=== PATIENT | male | born 1995 | race American Indian/Alaskan Native ===

== ENCOUNTER 2017-01-31 14:04 | Emergency (ER) | payer MEDICAID ==
[2017-01-31 14:04] VITALS: BMI 20.5
[2017-01-31 14:11] VITALS: O2SAT 98
[2017-01-31 14:47] LABS: RBC URINE 1 /hpf (0-3); URINE BILIRUBIN NEGATIVE (NEGATIVE); URINE BLOOD NEGATIVE (NEGATIVE); URINE COLOR Yellow (YELLOW); URINE GLUCOSE (UA) NORMAL (Normal); URINE KETONE NEGATIVE (NEGATIVE); URINE LEUKOCYTE ESTERASE TRACE Leu/uL (Negative); URINE PROTEIN NEGATIVE (NEGATIVE); URINE UROBILINOGEN NORMAL mg/dL (0.2-1.0); WBC URINE 10 /hpf (0-5)
[2017-01-31] MEDS ORDERED: cefTRIAXone (Rocephin) 250 mg Inj IM STA (14:52)
--- NOTE | 2017-01-31 14:58 | C.PDOC ---
History Of Present Illness Pt c/o "brown stuff" in his semen. Time Seen by Provider: 01/31/17 14:15 Chief Complaint (Nursing): Male Genitourinary History Per: Patient Onset/Duration Of Symptoms: Days (about 1 week), Intermittent Episodes Current Symptoms Are (Timing): Still Present Severity: Moderate Quality Of Discomfort: denies: "Pain" Alleviating Factors: None Additional History Per: Prior Records Past Medical History Reviewed: Historical Data, Nursing Documentation, Vital Signs Vital Signs: Last Vital Signs Temp 97.9 F 01/31/17 14:07 Pulse 89 01/31/17 14:07 Resp 18 01/31/17 14:07 BP 117/73 01/31/17 14:07 Pulse Ox 98 01/31/17 14:07 - Medical History PMH: No Chronic Diseases, Sexually Transmitted Disease Surgical History: No Surg Hx - [facility] Procedures OTHER SKIN & SUBQ I D (02/09/15) Family History: States: Unknown Family Hx - Social History Hx Tobacco Use: No Hx Alcohol Use: No Hx Substance Use: No - Immunization History Hx Tetanus Toxoid Vaccination: Yes Hx Influenza Vaccination: No Hx Pneumococcal Vaccination: No Review Of Systems Except As Marked, All Systems Reviewed And Found Negative. Constitutional: Negative for: Fever, Weakness Cardiovascular: Negative for: Chest Pain Respiratory: Negative for: Shortness of Breath Gastrointestinal: Negative for: Vomiting, Abdominal Pain Genitourinary: Negative for: Dysuria, Frequency, Hematuria, Penile Discharge, Scrotal Pain, Penile Pain Musculoskeletal: Negative for: Neck Pain, Back Pain Skin: Negative for: Rash Neurological: Negative for: Weakness, Numbness, Seizures, Altered Mental Status Physical Exam - Physical Exam Appears: Non-toxic, No Acute Distress Skin: Normal Color, Warm, Dry, No Rash Head: Atraumatic, Normacephalic Eye(s): bilateral: PERRL, EOMI Neck: Normal ROM, Supple Cardiovascular: Rhythm Regular Respiratory: Normal Breath Sounds, No Accessory Muscle Use Gastrointestinal/Abdominal: Soft, No Tenderness Back: No CVA Tenderness Male Genital: Normal Inspection, No Testicular Tenderness, No Testicular Swelling, No Inguinal Tenderness, No Inguinal Swelling, No Scrotal Swelling, Circumcised Extremity: Normal ROM Neurological/Psych: Oriented x3, Normal Motor, Normal Sensation ED Course And Treatment - Laboratory Results Interpretation Of Abnormal: Few WBCs in the urine. O2 Sat by Pulse Oximetry: 98 Pulse Ox Interpretation: Normal Medical Decision Making Medical Decision Making: Will treat for urethritis and refer to Urology. Disposition Counseled Patient/Family Regarding: Studies Performed, Diagnosis, Need For Followup - Disposition Referrals: Lissett Youngblood MD [Staff Provider] - Disposition: HOME/ ROUTINE Disposition Time: 14:59 Condition: STABLE Additional Instructions: Practice safe sex (always use a condom). Follow up with a Urologist for further evaluation and treatment. Return to the ER if you develop testicular pain or swelling, worsening of symptoms or if you have any other concerns. Forms: General Discharge Instructions - Clinical Impression Clinical Impression: Hematospermia
[2017-01-31 15:15] VITALS: BP 124/72; PULSE 82; RESP 17; TEMP 98.1
[2017-01-31] MEDS ORDERED: cefTRIAXone 250 MG in Lidocaine Hydrochloride 1 ML IM ONE (16:00)
== END 2017-01-31 15:30 | disposition home or self-care (01) ==
LOC: C.ER 14:04
DX: R36.1 Hematospermia (principal)
CPT/HCPCS: 81001; 87086; 87491; 87591; 96372; 99284; J0696

== ENCOUNTER 2017-10-23 10:07 | Emergency (ER) | payer MEDICAID ==
[2017-10-23 10:07] VITALS: BMI 20.5
[2017-10-23 10:36] VITALS: TEMP 97.8; O2SAT 98
[2017-10-23 12:17] VITALS: BP 138/83; PULSE 51; RESP 18
--- NOTE | 2017-10-23 12:17 | C.PDOC ---
History Of Present Illness 21 year old male presents to ED for evaluation of epigastric abdominal pain, nausea, vomiting, and constipation. Pt states he was taking Percocet daily for the past 2-3 years, and has stopped taking it now (last Percocet was 5-6 days ago). Patient admits he has been experienging nausea/vomiting since then, and attributes the to opiate withdrawal. Patient denies chest pain, shortness of breath, fever, palpitations, suicidal/homicidal ideation. Time Seen by Provider: 10/23/17 10:40 Chief Complaint (Nursing): Abdominal Pain History Per: Patient History/Exam Limitations: no limitations Onset/Duration Of Symptoms: Days Current Symptoms Are (Timing): Still Present Severity: Mild Location Of Pain/Discomfort: Epigastric Radiation Of Pain To:: None Quality Of Discomfort: "Pain" Associated Symptoms: Nausea, Vomiting, Constipation. denies: Diarrhea, Loss Of Appetite, Back Pain, Chest Pain, Urinary Symptoms Exacerbating Factors: None Last Bowel Movement: Days Ago (4-5) Additional History Per: Patient Past Medical History Reviewed: Historical Data, Nursing Documentation, Vital Signs Vital Signs: Last Vital Signs Temp 97.8 F 10/23/17 10:34 Pulse 51 L 10/23/17 12:17 Resp 18 10/23/17 12:17 BP 138/83 10/23/17 12:17 Pulse Ox 98 10/23/17 12:35 - Medical History PMH: Sexually Transmitted Disease - [facility] Procedures OTHER SKIN & SUBQ I D (02/09/15) Family History: States: No Known Family Hx, Unknown Family Hx - Social History Hx Tobacco Use: No Hx Alcohol Use: Yes Hx Substance Use: Yes - Immunization History Hx Tetanus Toxoid Vaccination: Yes Hx Influenza Vaccination: No Hx Pneumococcal Vaccination: No Review Of Systems Except As Marked, All Systems Reviewed And Found Negative. Constitutional: Negative for: Fever, Chills Cardiovascular: Negative for: Chest Pain, Palpitations Respiratory: Negative for: Shortness of Breath Gastrointestinal: Positive for: Nausea, Vomiting, Abdominal Pain, Constipation. Negative for: Diarrhea, Hematemesis Genitourinary: Negative for: Dysuria, Frequency, Hematuria Skin: Negative for: Rash Neurological: Negative for: Weakness Psych: Negative for: Suicidal ideation Physical Exam - Physical Exam Appears: Well, Non-toxic, No Acute Distress Skin: Normal Color, Warm, Dry Head: Normacephalic Eye(s): bilateral: Normal Inspection Oral Mucosa: Moist Chest: Symmetrical Cardiovascular: Rhythm Regular (mild bradycardia) Respiratory: Normal Breath Sounds, No Rales, No Rhonchi, No Wheezing Gastrointestinal/Abdominal: Normal Exam, Bowel Sounds, Soft, No Tenderness, No Guarding, No Rebound Extremity: Normal ROM, No Pedal Edema Neurological/Psych: Oriented x3 ED Course And Treatment O2 Sat by Pulse Oximetry: 98 (RA) Pulse Ox Interpretation: Normal - Other Rad Obstructive series X-Ray: Interpreted by Me, Viewed By Me Interpretation: Large amount of stool. No air fluid levels Progress Note: Obstructive series ordered and reviewed. Pt was given PO Colace, Zofran, and Pepcid. Reevaluation Time: 12:30 Reassessment Condition: Improved (On re-eval, pt is resting comfortably, no acute distress. Abdomen remains soft and non-tender. Pt reports feeling better. Patient is being discharged home with Rxs and was instructed to follow up with PMD/clinic in 1-2 days for further evaluation. He understands he should return to ED if symptoms worsen.) Disposition Counseled Patient/Family Regarding: Studies Performed, Diagnosis, Need For Followup, Rx Given - Disposition Referrals: Niels Strauss MD [Staff Provider] - Disposition: HOME/ ROUTINE Disposition Time: 12:30 Condition: STABLE Additional Instructions: FOLLOW UP WITH YOUR DOCTOR IN 1-2 DAYS DRINK PLENTY OF FLUIDS AND INCREASE FIBER IN YOUR DIET USE MEDICATIONS DIRECTED RETURN TO ER IF SYMPTOMS WORSEN Prescriptions: Docusate [Colace] 100 mg PO DAILY #30 cap Famotidine [Pepcid] 20 mg PO BID PRN #15 tab PRN Reason: abdominal Magnesium Citrate [Citrate of Mag] 300 ml PO ONCE PRN #1 bottle PRN Reason: Constipation Ondansetron [Zofran Odt] 4 mg PO Q8 PRN #10 odt PRN Reason: Nausea/Vomiting Instructions: Constipation (ED), High Fiber Diet (ED) Forms: [facility] (Spanish) Print Language: HEBREW - POA Present On Arrival: None - Clinical Impression Clinical Impression: Constipation, Nausea, Epigastric abdominal pain, Opiate dependence - Scribe Statement The provider has reviewed the documentation as recorded by the Alonaibgomez Hemphill All medical record entries made by the Scribe were at my direction and personally dictated by me. I have reviewed the chart and agree that the record accurately reflects my personal performance of the history, physical exam, medical decision making, and the department course for this patient. I have also personally directed, reviewed, and agree with the discharge instructions and disposition.
--- NOTE | 2017-10-23 13:16 | RAD ---
PROCEDURE: Radiographs of the chest and abdomen (obstructive series) HISTORY: Abdominal pain pain, vomiting, constipation COMPARISON: No prior. TECHNIQUE: AP radiograph of the chest, with upright and supine radiographs of the abdomen. FINDINGS: CHEST: Lungs: The lungs are well inflated and clear. Cardiovascular: Normal size heart. No pulmonary vascular congestion. Pleura: No pleural fluid. No pneumothorax. Other findings: None. ABDOMEN AND PELVIS: Bowel: There is large amount of stool in the colon. There are no air-fluid levels. No evidence of mechanical obstruction. Free air: None. Bones: Unremarkable. Other findings: None. IMPRESSION: Constipation. No evidence of mechanical bowel obstruction. Clear lungs.
== END 2017-10-23 12:33 | disposition home or self-care (01) ==
LOC: C.ER 10:07
DX: K59.00 Constipation, unspecified (principal); F11.20 Opioid dependence, uncomplicated; R11.2 Nausea with vomiting, unspecified; R10.13 Epigastric pain

== ENCOUNTER 2017-11-14 11:30 | Emergency (ER) | payer MEDICAID ==
[2017-11-14 11:30] VITALS: BMI 20.5
[2017-11-14 11:47] VITALS: BP 126/84; PULSE 58; RESP 17; TEMP 98.6; O2SAT 98
--- NOTE | 2017-11-14 12:28 | C.PDOC ---
History Of Present Illness 21 yo male c/o itchy spots on his skin for 2 days. Pt notes he applied hydrocortisone once last night with mild relief. Notes his mother has eczema with similar symptoms. DEnies any known allergens including no new foods or medication. Denies difficulty breathing or swallowing. Denies lip or tongue swelling, itchy throat or intraoral swelling. Time Seen by Provider: 11/14/17 12:17 Chief Complaint (Nursing): Abnormal Skin Integrity History Per: Patient History/Exam Limitations: no limitations Onset/Duration Of Symptoms: Days Current Symptoms Are (Timing): Still Present Past Medical History Vital Signs: Last Vital Signs Temp 98.6 F 11/14/17 11:44 Pulse 58 L 11/14/17 11:44 Resp 17 11/14/17 11:44 BP 126/84 11/14/17 11:44 Pulse Ox 98 11/14/17 12:29 - Medical History PMH: Sexually Transmitted Disease - [facility] Procedures OTHER SKIN & SUBQ I D (02/09/15) Family History: States: Unknown Family Hx - Social History Hx Tobacco Use: No Hx Alcohol Use: No Hx Substance Use: No - Immunization History Hx Tetanus Toxoid Vaccination: Yes (2012) Hx Influenza Vaccination: Yes (2015) Hx Pneumococcal Vaccination: No Review Of Systems Except As Marked, All Systems Reviewed And Found Negative. Physical Exam - Physical Exam Appears: Well, Non-toxic, No Acute Distress Skin: Warm, Dry, Rash ((+) dry skin colored maculopapules clusters x 5 (back , neck , left leg, left buttock, chest) with excoriations, (-) vesicles (-) discharge (-) erythema (-)swelling (-) fluctuance) Head: Atraumatic, Normacephalic Eye(s): bilateral: Normal Inspection, PERRL, EOMI Nose: Normal Oral Mucosa: Moist Throat: Normal, No Erythema, No Drooling Neck: Normal, Normal ROM, Supple Chest: Symmetrical Cardiovascular: Rhythm Regular Respiratory: Normal Breath Sounds Back: Normal Inspection Extremity: Normal ROM Neurological/Psych: Oriented x3, Normal Speech ED Course And Treatment O2 Sat by Pulse Oximetry: 98 Progress Note: Benadryl ordered. On reassessment, patient is resting comfortable and tolerating PO with no intraoral swelling or difficulty breathing. Patient reports improvement in rash and was instructed to follow up with physician/clinic in 1-2 days or return to ED if symptoms persist or worsen. Disposition - Disposition Disposition: HOME/ ROUTINE Disposition Time: 12:21 Condition: STABLE Additional Instructions: Follow up with primary medical doctor in 1-3 days without fail for further evaluation. Take medications as prescribed. Return to the emergency department at any time if symptoms persist or worsen. Prescriptions: Colloidal Oatmeal [Eucerin Eczema Relief] 1 ea TP BID #1 cream..g. DiphenhydrAMINE [Benadryl] 25 mg PO Q6 #20 cap Hydrocortisone 1% Cream [Cortizone 1% Cream] 1 appl TP TID #1 tube Instructions: Acute Rash (ED) Forms: [facility] (Occitan) - Clinical Impression Clinical Impression: Rash
== END 2017-11-14 13:07 | disposition home or self-care (01) ==
LOC: C.ER 11:30
DX: R21 Rash and other nonspecific skin eruption (principal)

== ENCOUNTER 2018-01-28 12:03 | Emergency (ER) | payer MEDICAID ==
[2018-01-28 12:15] VITALS: BMI 28.2
[2018-01-28] MEDS ORDERED: Aluminum Hydroxide/Magnesium Hydroxide Susp (30 mL) PO STA (12:58)
--- NOTE | 2018-01-28 12:58 | C.PDOC ---
History Of Present Illness CO THROAT BURNING NEW ONSET SINCE THIS MORNING. PS W INTERMIT GERD FOR SEV MONTHS BUT NO PRIOR MD DAHL FOR SAME. NO PRIOR GI MEDS TRIED. PS ATE SPICY, FRIED FOODS LAST NIGHT. CO BURNING. +FHX OF GERD. DENIES OTHER ASSOC SX EXAM NAD HEENT THROAT NEG ABD NEG REMAINDER NEG MDM DIET MOD, ANTACID RX, REFERRAL GI Time Seen by Provider: 01/28/18 12:43 Chief Complaint (Nursing): ENT Problem History Per: Patient History/Exam Limitations: no limitations Onset/Duration Of Symptoms: Hrs Current Symptoms Are (Timing): Still Present Severity: Moderate Past Medical History Reviewed: Historical Data, Nursing Documentation, Vital Signs Vital Signs: Last Vital Signs Temp 98.0 F 01/28/18 13:20 Pulse 56 L 01/28/18 13:20 Resp 18 01/28/18 13:20 BP 134/81 01/28/18 13:20 Pulse Ox 96 01/28/18 15:30 - Medical History PMH: Sexually Transmitted Disease Surgical History: No Surg Hx - [facility] Procedures OTHER SKIN & SUBQ I D (02/09/15) Family History: States: No Known Family Hx - Social History Hx Tobacco Use: No Hx Alcohol Use: No Hx Substance Use: No - Immunization History Hx Tetanus Toxoid Vaccination: Yes (2012) Hx Influenza Vaccination: Yes (2015) Hx Pneumococcal Vaccination: No Review Of Systems Except As Marked, All Systems Reviewed And Found Negative. Constitutional: Negative for: Fever, Chills ENT: Positive for: Other (throat burning) Physical Exam - Physical Exam Appears: No Acute Distress Skin: Normal Color, Warm Head: Atraumatic, Normacephalic Eye(s): bilateral: Normal Inspection Throat: Normal, No Erythema, No Exudate Gastrointestinal/Abdominal: Soft, No Tenderness, No Guarding, No Rebound Neurological/Psych: Oriented x3, Normal Speech ED Course And Treatment O2 Sat by Pulse Oximetry: 96 (RA) Pulse Ox Interpretation: Normal Medical Decision Making Medical Decision Making: DIET MOD, ANTACID RX, REFERRAL GI Disposition Counseled Patient/Family Regarding: Diagnosis, Need For Followup, Rx Given - Disposition Referrals: Anil Patel MD [Staff Provider] - [facility] [Outside] [facility] [Outside] Disposition: HOME/ ROUTINE Disposition Time: 12:58 Condition: IMPROVED Prescriptions: Famotidine [Pepcid AC] 10 mg PO QN #30 tablet Omeprazole Magnesium [Prilosec Otc] 20 mg PO QPM #30 tab Instructions: Acid Reflux (Gastroesophageal Reflux Disease), Adult (DC), Ulcer and Gastritis Diet Forms: [facility] (Vietnamese), Work Excuse - Clinical Impression Clinical Impression: GERD (gastroesophageal reflux disease), Throat pain - Scribe Statement The provider has reviewed the documentation as recorded by the Harleen Gonzalez Provider Attestation: All medical record entries made by the Harleen were at my direction and personally dictated by me. I have reviewed the chart and agree that the record accurately reflects my personal performance of the history, physical exam, medical decision making, and the department course for this patient. I have also personally directed, reviewed, and agree with the discharge instructions and disposition.
[2018-01-28] MEDS ORDERED: Aluminum Hydroxide/Magnesium Hydroxide Susp (30 mL) ONE (13:24)
[2018-01-28 13:27] VITALS: BP 134/81; PULSE 56; RESP 18; TEMP 98
[2018-01-29 11:09] VITALS: O2SAT 96
== END 2018-01-28 13:32 | disposition home or self-care (01) ==
LOC: C.ER 12:03
DX: K21.9 Gastro-esophageal reflux disease without esophagitis (principal); R07.0 Pain in throat

== ENCOUNTER 2018-02-09 23:37 | Emergency (ER) | payer MEDICAID ==
[2018-02-09 23:37] VITALS: BMI 28.2
[2018-02-10 00:02] VITALS: BP 171/77; PULSE 60; RESP 20; TEMP 97.6; O2SAT 96
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
--- NOTE | 2018-02-10 12:52 | RAD ---
PROCEDURE: Right Foot Radiographs. HISTORY: r/o fx COMPARISON: None. FINDINGS: BONES: Normal. No fracture. 2 mm os peroneum - accessory ossifications center incidentally noted JOINTS: Normal. SOFT TISSUES: Normal. OTHER FINDINGS: None. IMPRESSION: No fracture or dislocation.
== END 2018-02-10 01:01 | disposition home or self-care (01) ==
LOC: C.ER 23:37
DX: S99.921A Unspecified injury of right foot, initial encounter (principal); V09.9XXA Pedestrian injured in unspecified transport accident, initial encounter

== ENCOUNTER 2018-03-21 14:01 | Emergency (ER) | payer MEDICAID ==
[2018-03-21 14:02] VITALS: BMI 28.2
[2018-03-21 14:17] VITALS: BP 154/90; PULSE 54; RESP 16; TEMP 97.4; O2SAT 100
--- NOTE | 2018-03-21 14:42 | C.PDOC ---
History Of Present Illness 22yo male, with no past medical history, presents to ER with complaints of groin pain. Patient states 4 days ago, he noticed a bump to his right groin region with associated mild pain. He states yesterday, he noticed similar pain to his left groin, worse with changing from lying down to sitting up. He denies any dysuria, hematuria, purulent discharge, discharge from penis. He has no other medical complaints. PMD: Dr. Nieto Time Seen by Provider: 03/21/18 14:17 Chief Complaint (Nursing): Groin Pain History Per: Patient History/Exam Limitations: no limitations Onset/Duration Of Symptoms: Days Current Symptoms Are (Timing): Still Present Associated Symptoms: denies: Urinary Symptoms Additional History Per: Patient Past Medical History Reviewed: Historical Data, Nursing Documentation, Vital Signs Vital Signs: Last Vital Signs Temp 97.4 F L 03/21/18 14:13 Pulse 54 L 03/21/18 14:13 Resp 16 03/21/18 14:13 BP 154/90 H 03/21/18 14:13 Pulse Ox 100 03/21/18 14:42 - Medical History PMH: No Chronic Diseases, Sexually Transmitted Disease Surgical History: No Surg Hx - [facility] Procedures OTHER SKIN & SUBQ I D (02/09/15) Family History: States: No Known Family Hx, Unknown Family Hx - Social History Hx Tobacco Use: No Hx Alcohol Use: No Hx Substance Use: No - Immunization History Hx Tetanus Toxoid Vaccination: Yes (2012) Hx Influenza Vaccination: Yes (2015) Hx Pneumococcal Vaccination: No Review Of Systems Except As Marked, All Systems Reviewed And Found Negative. Constitutional: Negative for: Fever, Chills Genitourinary: Positive for: Other (painful bump to groin). Negative for: Dysuria, Penile Discharge Physical Exam - Physical Exam Appears: Non-toxic, No Acute Distress Skin: Normal Color Cardiovascular: Rhythm Regular Respiratory: Normal Breath Sounds Male Genital: No Testicular Tenderness, No Testicular Swelling, No Inguinal Tenderness, No Inguinal Swelling, No Scrotal Swelling, Other (no inguinal hernia noted; no inguinal lymphadenopathy noted) Neurological/Psych: Oriented x3 ED Course And Treatment O2 Sat by Pulse Oximetry: 100 (RA) Pulse Ox Interpretation: Normal Medical Decision Making Medical Decision Making: Impression: Groin strain Plan: -- Motrin 800 mg PO Progress: Patient with improvement in pain. Stable for discharge home, instructed to follow up with his PMD in 2-3 days. Disposition - Disposition Referrals: Chava Comer Jr., MD [Staff Provider] - Disposition: HOME/ ROUTINE Disposition Time: 14:39 Condition: STABLE Additional Instructions: Mr. Pemberton, thank you for letting us take care of you today. Return to the ER if your symptoms worsen, or if any problems. Take the medication listed below as prescribed for pain relief. Follow up with your primary care physician in 2-3 days for a re-evaluation, or follow up with our urologist (Dr. Comer)--call the phone number to make an appointment. Avoid heavy lifting. Prescriptions: Ibuprofen [Motrin Tab] 1 tab PO TID PRN #30 tab PRN Reason: Pain, Moderate (4-7) Instructions: Groin Strain Forms: [facility] (Turkish), General Discharge Instructions Print Language: AUSTRIAN - POA Present On Arrival: None - Clinical Impression Clinical Impression: Strain of groin - Scribe Statement The provider has reviewed the documentation as recorded by the Scribe (Gabrielle Hobbs) Provider Attestation: All medical record entries made by the Scribe were at my direction and personally dictated by me. I have reviewed the chart and agree that the record accurately reflects my personal performance of the history, physical exam, medical decision making, and the department course for this patient. I have also personally directed, reviewed, and agree with the discharge instructions and disposition.
== END 2018-03-21 14:45 | disposition home or self-care (01) ==
LOC: C.ER 14:01
DX: S39.011A Strain of muscle, fascia and tendon of abdomen, initial encounter (principal); X58.XXXA Exposure to other specified factors, initial encounter

== ENCOUNTER 2018-05-20 00:26 | Emergency (ER) | payer MEDICAID ==
[2018-05-20 00:26] VITALS: BMI 28.2
[2018-05-20 00:41] VITALS: BP 154/73; PULSE 78; RESP 20; TEMP 99.1; O2SAT 99
--- NOTE | 2018-05-20 01:01 | C.PDOC ---
History Of Present Illness 22 year old male presents to the ER with a complaint of pain to the left anterior forearm with a tingling sensation that has now since resolved. Patient reports he took a baby aspirin and aleve a few hours apart since 19:00. Denies weakness, numbness, trauma, or strenuous activity. Time Seen by Provider: 05/20/18 00:45 Chief Complaint (Nursing): Upper Extremity Problem/Injury History Per: Patient History/Exam Limitations: no limitations Onset/Duration Of Symptoms: Hrs Current Symptoms Are (Timing): Still Present Exacerbating Factor(s): Nothing Recent travel outside of the [place]: No Past Medical History Reviewed: Historical Data, Nursing Documentation, Vital Signs Vital Signs: Last Vital Signs Temp 99.1 F 05/20/18 00:37 Pulse 78 05/20/18 00:37 Resp 20 05/20/18 00:37 BP 154/73 H 05/20/18 00:37 Pulse Ox 99 05/20/18 02:38 - Medical History PMH: Sexually Transmitted Disease Surgical History: No Surg Hx - [facility] Procedures OTHER SKIN & SUBQ I D (02/09/15) Family History: States: Unknown Family Hx - Social History Hx Tobacco Use: No Hx Alcohol Use: No Hx Substance Use: No - Immunization History Hx Tetanus Toxoid Vaccination: Yes (2012) Hx Influenza Vaccination: Yes (2015) Hx Pneumococcal Vaccination: No Review Of Systems Musculoskeletal: Positive for: Arm Pain Neurological: Positive for: Other (Tingling). Negative for: Weakness, Numbness Physical Exam - Physical Exam Appears: Non-toxic Skin: Normal Color, Warm, Dry Head: Atraumatic, Normacephalic Eye(s): bilateral: Normal Inspection Chest: Symmetrical, No Tenderness Cardiovascular: Rhythm Regular Respiratory: Normal Breath Sounds, No Decreased Breath Sounds Extremity: Normal ROM (x4), No Deformity, No Swelling Extremity: Bilateral: Atraumatic, Normal Color And Temperature Pulses: Left Femoral: Normal Neurological/Psych: Oriented x3, Normal Speech, Normal Motor, Normal Sensation ED Course And Treatment O2 Sat by Pulse Oximetry: 99 (Room air ) Pulse Ox Interpretation: Normal Progress Note: Patient is resting comfortably in the ER in no acute distress, vitals are stable, will discharge home with instructions to follow up with PMD. 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 - Scribe Statement The provider has reviewed the documentation as recorded by the Scribe Kirill Diaz All medical record entries made by the Alonaibgomez were at my direction and personally dictated by me. I have reviewed the chart and agree that the record accurately reflects my personal performance of the history, physical exam, medical decision making, and the department course for this patient. I have also personally directed, reviewed, and agree with the discharge instructions and disposition.
== END 2018-05-20 01:25 | disposition home or self-care (01) ==
LOC: C.ER 00:26 → SUPCPDRO 00:26 → C.ER 01:25
DX: M79.632 Pain in left forearm (principal)

== ENCOUNTER 2018-06-05 20:11 | Emergency (ER) | payer MEDICAID ==
[2018-06-05 20:12] VITALS: BMI 28.2
[2018-06-05 20:50] VITALS: BP 151/90; PULSE 53; TEMP 98.2; O2SAT 98
--- NOTE | 2018-06-05 21:57 | C.PDOC ---
History Of Present Illness 22 year old male presents to the ER with a complaint of a sharp chest pain for the past week associated with left upper arm pain described as tingling. Patient states the pain worsens with movement and notes he was recently ill with cough and congestion last week. Denies fever, vomiting, diarrhea, hemoptysis, or trauma. Time Seen by Provider: 06/05/18 20:56 Chief Complaint (Nursing): Upper Extremity Problem/Injury History Per: Patient History/Exam Limitations: no limitations Onset/Duration Of Symptoms: Days Current Symptoms Are (Timing): Still Present Quality: Sharp Exacerbating Factor(s): Movement Recent travel outside of the [place]: No Past Medical History Reviewed: Historical Data, Nursing Documentation, Vital Signs Vital Signs: Last Vital Signs Temp 98.2 F 06/05/18 20:47 Pulse 53 L 06/05/18 20:47 Resp 20 06/05/18 22:04 BP 151/90 H 06/05/18 20:47 Pulse Ox 98 06/06/18 02:02 - Medical History PMH: Sexually Transmitted Disease - [facility] Procedures OTHER SKIN & SUBQ I D (02/09/15) Family History: States: Unknown Family Hx - Social History Hx Tobacco Use: No Hx Alcohol Use: No Hx Substance Use: (DENIED) - Immunization History Hx Tetanus Toxoid Vaccination: Yes (2012) Hx Influenza Vaccination: Yes (2015) Hx Pneumococcal Vaccination: No Review Of Systems Constitutional: Negative for: Fever Respiratory: Negative for: Hemoptysis Gastrointestinal: Negative for: Vomiting, Diarrhea Musculoskeletal: Positive for: Arm Pain, Other (Chest wall pain) Neurological: Negative for: Weakness, Numbness Physical Exam - Physical Exam Appears: Non-toxic Skin: Normal Color, Warm, Dry, No Rash Head: Atraumatic, Normacephalic Eye(s): bilateral: Normal Inspection Oral Mucosa: Moist Neck: Normal, Supple Chest: Symmetrical, Tenderness Cardiovascular: Rhythm Regular, No Friction Rub, No Murmur Respiratory: Normal Breath Sounds, No Rales, No Rhonchi, No Wheezing Gastrointestinal/Abdominal: Soft, No Tenderness Extremity: Normal ROM (x4), No Tenderness, No Deformity, No Swelling Pulses: Left Radial: Normal, Right Radial: Normal Neurological/Psych: Oriented x3, Normal Speech Gait: Steady ED Course And Treatment ECG: Interpreted By Me (Dr. Lara), Viewed By Me ECG Rhythm: Sinus Rhythm ECG Interpretation: Normal Interpretation Of ECG: normal axis, normal R wave progression Rate From EC O2 Sat by Pulse Oximetry: 98 (on RA) Pulse Ox Interpretation: Normal - Radiology CXR: Interpreted by Me CXR Interpretation: Yes: No Acute Disease. No: Infiltrates, Pnemothorax Medical Decision Making Medical Decision Making: EKG and CXR ordered, results were negative. Motrin administered with relief. Explained to patient that pain is most likely musculoskeletal, EKG and CXR were normal, patient has low risk factors for cardiac disease, will discharge home. On re-exam, the patient reports improvement of symptoms. Lungs are CTA, heart is RRR, abdomen is soft, non-tender and tolerating PO well. Ambulatory in the ED with steady gait. Follow up with the medical doctor within 1-2 days, Return if worsened. Disposition - Disposition Referrals: Niels Strauss MD [Staff Provider] - Disposition: HOME/ ROUTINE Disposition Time: 21:55 Condition: GOOD Additional Instructions: Follow up with the medical doctor/clinic within 1-2 days. Return if worsened. 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 - Scribe Statement The provider has reviewed the documentation as recorded by the Scribe Kirill Diaz All medical record entries made by the Scribe were at my direction and personally dictated by me. I have reviewed the chart and agree that the record accurately reflects my personal performance of the history, physical exam, medical decision making, and the department course for this patient. I have also personally directed, reviewed, and agree with the discharge instructions and disposition.
[2018-06-05 22:08] VITALS: RESP 20
--- NOTE | 2018-06-06 09:00 | RAD ---
Date of service: 06/05/2018 HISTORY: cough, chest pain, COMPARISON: Abdomen obstructive series 10/23/17. TECHNIQUE: Chest PA and lateral FINDINGS: LUNGS: No active pulmonary disease. PLEURA: No significant pleural effusion identified. No pneumothorax apparent. CARDIOVASCULAR: Normal. OSSEOUS STRUCTURES: No significant abnormalities. VISUALIZED UPPER ABDOMEN: Normal. OTHER FINDINGS: None. IMPRESSION: No interval acute cardiopulmonary disease appreciated.
== END 2018-06-05 22:04 | disposition home or self-care (01) ==
LOC: C.ER 20:11
DX: M94.0 Chondrocostal junction syndrome [Tietze] (principal)

== ENCOUNTER 2018-06-26 08:51 | Emergency (ER) | payer MEDICAID ==
[2018-06-26 09:08] VITALS: O2SAT 100; BMI 27.2
[2018-06-26] MEDS ORDERED: Naproxen 550 mg Tab PO STA (09:21)
[2018-06-26] MEDS ORDERED: Naproxen 550 mg Tab PO ONE (09:31)
--- NOTE | 2018-06-26 09:47 | RAD ---
Date of service: 06/26/2018 HISTORY: upper back pain COMPARISON: Comparison chest 06/05/2018 TECHNIQUE: Chest PA and lateral FINDINGS: LUNGS: No active pulmonary disease. PLEURA: No significant pleural effusion identified. No pneumothorax apparent. CARDIOVASCULAR: Normal. OSSEOUS STRUCTURES: No significant abnormalities. VISUALIZED UPPER ABDOMEN: Normal. OTHER FINDINGS: None. IMPRESSION: No active disease.
--- NOTE | 2018-06-26 09:52 | C.PDOC ---
History Of Present Illness 22 y/o male presents to the ER complaining of upper and lower back pain x 1 week. He also reports nasal congestion for the past 3-4 days. Patient denies any injuries, heavy lifting, cough, shortness of breath, chest pain, fever, or abdominal pain. Time Seen by Provider: 06/26/18 09:05 Chief Complaint (Nursing): Back Pain History Per: Patient History/Exam Limitations: no limitations Onset/Duration Of Symptoms: Days Current Symptoms Are (Timing): Still Present Quality Of Discomfort: "Pain" Severity: Mild Associated Symptoms: None. denies: Incontinence, New Weakness, New Numbness Exacerbating Factor(s): Movement Additional History Per: Patient Past Medical History Reviewed: Historical Data, Nursing Documentation, Vital Signs Vital Signs: Last Vital Signs Temp 98.1 F 06/26/18 11:28 Pulse 52 L 06/26/18 11:28 Resp 20 06/26/18 11:28 BP 177/98 H 06/26/18 11:28 Pulse Ox 100 06/26/18 11:37 - Medical History PMH: No Chronic Diseases, Sexually Transmitted Disease Surgical History: No Surg Hx - [facility] Procedures OTHER SKIN & SUBQ I D (02/09/15) Family History: States: No Known Family Hx - Social History Hx Tobacco Use: No Hx Alcohol Use: No Hx Substance Use: No (DENIED) - Immunization History Hx Tetanus Toxoid Vaccination: Yes (2012) Hx Influenza Vaccination: Yes (2015) Hx Pneumococcal Vaccination: No Review Of Systems ENT: Positive for: Nose Congestion Cardiovascular: Negative for: Chest Pain Respiratory: Negative for: Cough, Shortness of Breath Gastrointestinal: Negative for: Nausea, Vomiting, Abdominal Pain Genitourinary: Negative for: Incontinence Musculoskeletal: Positive for: Back Pain Skin: Negative for: Rash Neurological: Negative for: Weakness, Numbness Physical Exam - Physical Exam Appears: Well, Non-toxic, No Acute Distress Skin: Normal Color, Warm, Dry, No Rash Eye(s): bilateral: Normal Inspection Oral Mucosa: Moist Neck: Supple Chest: Symmetrical Cardiovascular: Rhythm Regular (bradycardic) Respiratory: Normal Breath Sounds, No Rales, No Rhonchi, No Wheezing Gastrointestinal/Abdominal: Normal Exam, Bowel Sounds, Soft, No Tenderness Back: No CVA Tenderness, No Vertebral Tenderness, Paraspinal Tenderness ( Tenderness bilaterally at approx T3-T4 and L3-L4 levels), No Straight Leg Raising Extremity: Normal ROM Neurological/Psych: Oriented x3 ED Course And Treatment - Laboratory Results Result Diagrams: 06/26/18 10:18 06/26/18 10:18 ECG: Interpreted By Me, Viewed By Me ECG Rhythm: Sinus Bradycardia ECG Interpretation: Abnormal Interpretation Of ECG: Normal axis,, no ST/T changes Rate From EC (bpm) O2 Sat by Pulse Oximetry: 100 (RA) Pulse Ox Interpretation: Normal - Radiology CXR: Interpreted by Me, Viewed By Me CXR Interpretation: Yes: No Acute Disease. No: Infiltrates, Fracture, Cardiomegaly, Pnemothorax Progress Note: Patient given PO naprosyn and flexeril for back pain. EKG, blood work, UA, UDS ordered and reviewed due to bradycardia. Patient given IV NS bolus. 1135 Patient reassessed, is resting comfortably and feeling better. Heart rate now in 50s, and he denies chest pain, palpitations, SOB. Blood work unremarkable. Patient instructed to follow up with PMD as scheduled (), and he understands he should return to ED in the interim if he has any concerning symptoms. Reevaluation Time: 11:35 Reassessment Condition: Improved Disposition Counseled Patient/Family Regarding: Studies Performed, Diagnosis, Need For Followup, Rx Given - Disposition Referrals: Niels Strauss MD [Staff Provider] - Disposition: HOME/ ROUTINE Disposition Time: 11:35 Condition: STABLE Additional Instructions: FOLLOW UP WITH YOUR DOCTOR IN 1-2 DAYS USE MEDICATIONS NEEDED RETURN TO ER IF YOU HAVE ANY WORSENING/CONCERNING SYMPTOMS Prescriptions: Cyclobenzaprine [Flexeril] 10 mg PO BID PRN #15 tab PRN Reason: Muscle Spasm Naproxen 375 mg PO BID PRN #20 tablet PRN Reason: pain Instructions: Low Back Pain (DC), Upper Back Pain (DC), Bradycardia (DC) Forms: [facility] (Kiswahili) Print Language: PERSIAN - POA Present On Arrival: None - Clinical Impression Clinical Impression: Low back pain, Upper back pain, Sinus bradycardia - Scribe Statement The provider has reviewed the documentation as recorded by the Harleen Hobbs Provider Attestation: All medical record entries made by the Alonaibgomez were at my direction and personally dictated by me. I have reviewed the chart and agree that the record accurately reflects my personal performance of the history, physical exam, medical decision making, and the department course for this patient. I have also personally directed, reviewed, and agree with the discharge instructions and disposition.
[2018-06-26 09:54] VITALS: RESP 20
[2018-06-26 10:23] LABS: EOS # 0.2 K/uL (0.0-0.7); EOS % 4.5 % (0.0-4.0); HEMOGLOBIN 13.1 g/dL (12.0-18.0); LYMPH # 1.7 K/uL (1.0-4.3); MEAN CELL VOLUME 84.7 fL (80.0-94.0); MEAN CORPUSCULAR HEMOGLOBIN 28.4 pg (27.0-31.0); MEAN CORPUSCULAR HGB CONC 33.5 g/dL (33.0-37.0); MEAN PLATELET VOLUME 10.2 fL (7.2-11.7); MONO # 0.4 K/uL (0.0-0.8); MONO % 10.1 % (0.0-10.0); NEUT # 1.2 K/uL (1.8-7.0); NEUT % 35.4 % (50.0-75.0); RBC 4.63 Mil/uL (4.40-5.90); WHITE BLOOD COUNT 3.5 K/uL (4.8-10.8)
[2018-06-26] MEDS ORDERED: Sodium Chloride 0.9% 1,000 ML IV ONE ×2 (10:23)
[2018-06-26] MEDS ORDERED: Sodium Chloride 0.9% 1,000 ML ONE (10:28)
[2018-06-26 10:29] LABS: URINE BILIRUBIN NEGATIVE (NEGATIVE); URINE BLOOD NEGATIVE (NEGATIVE); URINE CLARITY Clear (Clear); URINE COLOR Yellow (YELLOW); URINE GLUCOSE (UA) NORMAL (Normal); URINE LEUKOCYTE ESTERASE NEG Leu/uL (Negative); URINE PROTEIN NEGATIVE (NEGATIVE)
[2018-06-26 10:39] LABS: ALB/GLOB RATIO 1.5 (1.0-2.1); ALBUMIN 4.4 g/dL (3.5-5.0); ALT/SGPT 26 U/L (21-72); AST/SGOT 23 U/L (17-59); BLOOD UREA NITROGEN 16 mg/dL (9-20); CALCIUM 9.8 mg/dl (8.6-10.4); GFR NON-AFRICAN AMERICAN > 60
[2018-06-26 10:50] LABS: CK-MB 0.99 ng/mL (0.0-3.38)
[2018-06-26 11:00] LABS: BARBITURATES, UR NEGATIVE (NEGATIVE); BENZODIAZEPINES, UR NEGATIVE (NEGATIVE); OPIATES, UR NEGATIVE (NEGATIVE); PHENCYCLIDINE, UR NEGATIVE (NEGATIVE)
[2018-06-26 11:29] VITALS: BP 177/98; PULSE 52; TEMP 98.1
--- NOTE | 2018-06-26 17:40 | CARD ---
APPROVED REPORT Date of service: 06/26/2018 EKG Measurement Heart [id number] <Conclusion> Marked sinus bradycardia Abnormal ECG
== END 2018-06-26 11:43 | disposition home or self-care (01) ==
LOC: C.ER 08:51
DX: M54.5 Low back pain (principal); R00.1 Bradycardia, unspecified; M54.6 Pain in thoracic spine
CPT/HCPCS: 71046; 80053; 80324; 80345; 80346; 80349; 80353; 80358; 80361; 81001; 82550; 82553; 83992; 84443; 84484; 85025; 93005; 96360; 99285; J7030

== ENCOUNTER 2018-06-29 19:42 | Emergency (ER) | payer MEDICAID ==
[2018-06-29 19:42] VITALS: BMI 27.2
[2018-06-29 19:58] VITALS: BP 164/94; TEMP 97.4
[2018-06-29] MEDS ORDERED: Aspirin 325 mg EC Tablets PO STA (20:43)
--- NOTE | 2018-06-29 20:43 | C.PDOC ---
History Of Present Illness 22 year old male presents to the ED c/o feeling weak today while walking and also come chest discomfort. Patient was seen here on Friday with a negative workup. Patient states he did [employer] party on Friday but denies any drug use. Patient speaking in complete sentences. Patient denies fever, chills, nausea, vomit, diarrhea, palpitations, SOB. Time Seen by Provider: 06/29/18 20:42 Chief Complaint (Nursing): Chest Pain History Per: Patient History/Exam Limitations: no limitations Onset/Duration Of Symptoms: Days Current Symptoms Are (Timing): Still Present Quality: Tightness Alleviating Factors: None Recent travel outside of the [place]: No Additional History Per: Patient Past Medical History Reviewed: Historical Data, Nursing Documentation, Vital Signs Vital Signs: Last Vital Signs Temp 97.4 F L 06/29/18 19:54 Pulse 58 L 06/29/18 21:53 Resp 16 06/29/18 21:53 BP 164/94 H 06/29/18 19:54 Pulse Ox 100 06/29/18 21:53 - Medical History PMH: Sexually Transmitted Disease Surgical History: No Surg Hx - [facility] Procedures OTHER SKIN & SUBQ I D (02/09/15) Family History: States: Unknown Family Hx - Social History Hx Tobacco Use: No Hx Alcohol Use: No Hx Substance Use: No (DENIED) - Immunization History Hx Tetanus Toxoid Vaccination: Yes (2012) Hx Influenza Vaccination: Yes (2015) Hx Pneumococcal Vaccination: No Review Of Systems Constitutional: Negative for: Fever, Chills Cardiovascular: Positive for: Chest Pain. Negative for: Palpitations Respiratory: Negative for: Cough, Shortness of Breath Gastrointestinal: Negative for: Nausea, Vomiting Neurological: Positive for: Weakness. Negative for: Numbness Physical Exam - Physical Exam Appears: Non-toxic, No Acute Distress Skin: Warm, Dry Head: Normacephalic Eye(s): bilateral: Normal Inspection Neck: Supple Chest: Symmetrical Cardiovascular: Rhythm Regular Respiratory: No Rales, No Rhonchi, No Wheezing Gastrointestinal/Abdominal: Soft, No Tenderness, No Guarding, No Rebound Extremity: No Tenderness, No Swelling Extremity: Bilateral: Atraumatic, Normal Color And Temperature, Normal ROM Neurological/Psych: Oriented x3, Normal Speech, Normal Cognition, Other (no focal deficits) Gait: Steady ED Course And Treatment - Laboratory Results Result Diagrams: 06/29/18 21:01 06/29/18 21:01 ECG: Interpreted By Me, Viewed By Me ECG Rhythm: Sinus Bradycardia (45), Nonspecific Changes O2 Sat by Pulse Oximetry: 99 (ON RA) Pulse Ox Interpretation: Normal - Radiology CXR: Interpreted by Me, Viewed By Me CXR Interpretation: No: Infiltrates, Fracture, Pnemothorax Progress Note: Plan: - EKG. - Labs. - Aspirin 325 mg PO Reevaluation Time: 22:54 Reassessment Condition: Improved Medical Decision Making Medical Decision Making: I considered the following diagnoses: acute coronary syndrome, pulmonary embolism, lower respiratory infection, aortic dissection/aneurysm, pneumothorax , pericarditis, esophagitis/GERD, zoster and esophageal rupture but found them to be unlikely based on the history, physical exam, and diagnostics. My conclusions regarding the unlikely diagnoses were based on: the absence of significant EKG abnormalities, the lack of suggestive x-ray findings, the absence of significant abnormalities on cardiac monitoring, the absence of asymmetric pulses. Pt is chest pain free and wants to go home Upon provider reevaluation patient is feeling better, is medically stable, and requires no further treatment in the ED at this time. Patient will be discharged home . Counseling was provided and all questions were answered regarding diagnosis and need for follow up with dr pollock. There is agreement to discharge plan. Return if symptoms persist or worsen. Disposition Counseled Patient/Family Regarding: Studies Performed, Diagnosis, Need For Followup - Disposition Referrals: [facility] [Outside] [facility] [Outside] Disposition: HOME/ ROUTINE Disposition Time: 20:42 Condition: FAIR Additional Instructions: Please return if symptoms recur Instructions: Costochondritis (DC) Forms: [employer] (Bahraini) - Clinical Impression Clinical Impression: Malaise and fatigue, Chest discomfort - Scribe Statement The provider has reviewed the documentation as recorded by the Scribe Klaus Armendariz All medical record entries made by the Scribe were at my direction and personally dictated by me. I have reviewed the chart and agree that the record accurately reflects my personal performance of the history, physical exam, medical decision making, and the department course for this patient. I have also personally directed, reviewed, and agree with the discharge instructions and disposition.
[2018-06-29 21:06] LABS: BASO % 0.9 % (0.0-2.0); EOS # 0.2 K/uL (0.0-0.7); EOS % 5.8 % (0.0-4.0); HEMOGLOBIN 12.5 g/dL (12.0-18.0); LYMPH # 1.4 K/uL (1.0-4.3); LYMPH % 35.9 % (20.0-40.0); MEAN CORPUSCULAR HEMOGLOBIN 27.6 pg (27.0-31.0); MEAN CORPUSCULAR HGB CONC 32.5 g/dL (33.0-37.0); MEAN PLATELET VOLUME 10.4 fL (7.2-11.7); MONO # 0.4 K/uL (0.0-0.8); MONO % 10.7 % (0.0-10.0); NEUT # 1.8 K/uL (1.8-7.0); NEUT % 46.7 % (50.0-75.0); NRBC % 0.2 % (0.0-2.0); RBC 4.53 Mil/uL (4.40-5.90); RED CELL DISTRIBUTION WIDTH 14.5 % (11.5-14.5); WHITE BLOOD COUNT 3.8 K/uL (4.8-10.8)
[2018-06-29 21:32] LABS: ALB/GLOB RATIO 1.6 (1.0-2.1); ALBUMIN 4.6 g/dL (3.5-5.0); ALT/SGPT 19 U/L (21-72); AST/SGOT 24 U/L (17-59); BLOOD UREA NITROGEN 12 mg/dL (9-20); CALCIUM 9.9 mg/dl (8.6-10.4); GFR NON-AFRICAN AMERICAN > 60; HDL CHOLESTEROL 35 mg/dL (30-70)
[2018-06-29 21:34] LABS: LDL CHOLESTEROL 132 mg/dL (0-129)
[2018-06-29 21:53] VITALS: PULSE 58; RESP 16
[2018-06-29 22:05] LABS: BARBITURATES, UR NEGATIVE (NEGATIVE); BENZODIAZEPINES, UR NEGATIVE (NEGATIVE); OPIATES, UR NEGATIVE (NEGATIVE); PHENCYCLIDINE, UR NEGATIVE (NEGATIVE)
[2018-06-29 23:06] VITALS: O2SAT 99
--- NOTE | 2018-07-01 14:44 | CARD ---
APPROVED REPORT Date of service: 06/29/2018 EKG Measurement Heart [id number] <Conclusion> Sinus bradycardia Otherwise normal ECG
== END 2018-06-29 23:18 | disposition home or self-care (01) ==
LOC: C.ER 19:42
DX: R53.81 Other malaise (principal); R53.83 Other fatigue; R07.89 Other chest pain

== ENCOUNTER 2018-08-17 08:47 | Emergency (ER) | payer MEDICAID ==
[2018-08-17 08:47] VITALS: BMI 27.2
[2018-08-17 09:08] VITALS: BP 147/89; PULSE 55; RESP 18; TEMP 98.3; O2SAT 96
[2018-08-17] MEDS ORDERED: Naproxen 550 mg Tab PO STA (09:24)
--- NOTE | 2018-08-17 09:28 | C.PDOC ---
History Of Present Illness 22 year old male presents to the ED for evaluation of non-productive cough and body aches for the last 5 days. Patient notes he had a sore throat, which has resolved. Denies sick contact, nasal congestion, fever, nausea, vomiting, diarrhea, and any other associated symptoms. Time Seen by Provider: 08/17/18 09:09 Chief Complaint (Nursing): Cough, Cold, Congestion History Per: Patient History/Exam Limitations: no limitations Onset/Duration Of Symptoms: Days Current Symptoms Are (Timing): Still Present Past Medical History Reviewed: Historical Data, Nursing Documentation, Vital Signs Vital Signs: Last Vital Signs Temp 98.3 F 08/17/18 09:04 Pulse 55 L 08/17/18 09:04 Resp 18 08/17/18 09:04 BP 147/89 08/17/18 09:04 Pulse Ox 96 08/17/18 09:04 - Medical History PMH: Sexually Transmitted Disease - [facility] Procedures OTHER SKIN & SUBQ I D (02/09/15) Family History: States: Unknown Family Hx - Social History Hx Tobacco Use: No Hx Alcohol Use: No Hx Substance Use: No (DENIED) - Immunization History Hx Tetanus Toxoid Vaccination: Yes (2012) Hx Influenza Vaccination: No Hx Pneumococcal Vaccination: No Review Of Systems Constitutional: Positive for: Other (body aches. ). Negative for: Fever, Chills ENT: Negative for: Nose Congestion Respiratory: Positive for: Cough Gastrointestinal: Negative for: Nausea, Vomiting Physical Exam - Physical Exam Appears: Non-toxic, Other (comfortable. ) Skin: Normal Color, Warm, Dry Head: Atraumatic, Normacephalic Nose: Normal, No Discharge Throat: Normal, No Erythema, No Exudate Cardiovascular: Rhythm Regular, No Murmur Respiratory: Normal Breath Sounds, No Rales, No Rhonchi, No Wheezing Neurological/Psych: Oriented x3, Normal Speech Gait: Steady ED Course And Treatment O2 Sat by Pulse Oximetry: 96 (RA) Pulse Ox Interpretation: Normal Progress Note: Patient stable for discharge home. Prescribed Naproxen and Oxymetazoline. Advised to follow up with PMD as needed. Disposition Counseled Patient/Family Regarding: Diagnosis, Need For Followup, Rx Given - Disposition Referrals: [facility] [Outside] Disposition: HOME/ ROUTINE Disposition Time: 09:30 Condition: STABLE Additional Instructions: FOLLOW UP WITH YOUR DOCTOR/CLINIC IN 1-2 DAYS USE MEDICATIONS NEEDED AND DRINK PLENTY OF FLUIDS RETURN TO ER IF SYMPTOMS WORSEN Prescriptions: Naproxen 375 mg PO BID PRN #20 tablet PRN Reason: pain Oxymetazoline 0.05% [Afrin 0.05%] 2 spr NS Q12H PRN #1 bottle PRN Reason: Nasal Congestion Instructions: Upper Respiratory Infection (ED) Forms: [employer] ([place]inyar[place]) Print Language: MARTIN[place]QU[place]IS - POA Present On Arrival: None - Clinical Impression Clinical Impression: Viral upper respiratory infection - Scribe Statement The provider has reviewed the documentation as recorded by the Scribe (Tisha Arroyo) Provider Attestation: All medical record entries made by the Scribe were at my direction and personally dictated by me. I have reviewed the chart and agree that the record accurately reflects my personal performance of the history, physical exam, medical decision making, and the department course for this patient. I have also personally directed, reviewed, and agree with the discharge instructions and disposition.
[2018-08-17] MEDS ORDERED: Naproxen 550 mg Tab PO ONE (09:32)
== END 2018-08-17 09:40 | disposition home or self-care (01) ==
LOC: C.ER 08:47
DX: J06.9 Acute upper respiratory infection, unspecified (principal)

== ENCOUNTER 2018-10-09 20:08 | Emergency (ER) | payer MEDICAID ==
[2018-10-09 20:08] VITALS: BMI 27.2
[2018-10-09 21:17] VITALS: BP 103/68; PULSE 71; TEMP 98; O2SAT 99
--- NOTE | 2018-10-09 22:47 | C.PDOC ---
History Of Present Illness 22 year old male presents to the ER with a complaint of nasal congestion and facial pain for the past few days, associated with minimal nasal discharge. [place] [facility] [place] told he [place] a sore in his left nostril, however, patient now has facial pain which prompted visit. Denies fever or chills. Time Seen by Provider: 10/09/18 21:30 Chief Complaint (Nursing): ENT Problem History Per: Patient History/Exam Limitations: no limitations Onset/Duration Of Symptoms: Days Current Symptoms Are (Timing): Still Present Recent travel outside of the [place]: No Past Medical History Reviewed: Historical Data, Nursing Documentation, Vital Signs Vital Signs: Last Vital Signs Temp 98 F 10/09/18 21:13 Pulse 71 10/09/18 21:13 Resp 18 10/09/18 21:13 BP 103/68 10/09/18 21:13 Pulse Ox 99 10/09/18 21:13 - Medical History PMH: HTN, Sexually Transmitted Disease - [facility] Procedures OTHER SKIN & SUBQ I D (02/09/15) Family History: States: Unknown Family Hx - Social History Hx Tobacco Use: No Hx Alcohol Use: Yes Hx Substance Use: No (DENIED) - Immunization History Hx Tetanus Toxoid Vaccination: Yes (2012) Hx Influenza Vaccination: Yes Hx Pneumococcal Vaccination: No Review Of Systems Constitutional: Negative for: Fever, Chills ENT: Positive for: Nose Discharge, Nose Congestion Musculoskeletal: Positive for: Other (Facial pain) Physical Exam - Physical Exam Appears: Non-toxic Skin: Normal Color, Warm, Dry Head: Atraumatic, Normacephalic, Tenderness (Frontal parasinus), No Swelling (Facial) Eye(s): bilateral: Normal Inspection Ear(s): Bilateral: Normal Nose: Other (Enlarged turbinates. No lesions in the nasal cavity.) Oral Mucosa: Moist Throat: Normal, No Erythema, No Exudate Neck: Normal, Supple Neurological/Psych: Oriented x3 ED Course And Treatment O2 Sat by Pulse Oximetry: 99 (room air) Pulse Ox Interpretation: Normal Progress Note: Patient is resting comfortably in the ER in no acute distress, vitals are stable, will discharge home with Rx and instructions to follow up with PMD for further evaluation. Disposition - Disposition Disposition: HOME/ ROUTINE Disposition Time: 22:42 Condition: STABLE Additional Instructions: TAKE MEDICATIONS DIRECTED USE HUMIDIFIED AIR/ SALINE NOSE DROPS RETURN TO ER IF WORSE Prescriptions: Cetirizine HCl [Zyrtec] 10 mg PO DAILY #14 capsule Ibuprofen [Motrin] 600 mg PO Q6H #20 tab Mometasone Furoate [Nasonex] 1 spray NS BID #1 bottle Instructions: Seasonal Allergies (DC) Forms: [employer] (Yoruba) - Clinical Impression Clinical Impression: Allergic rhinitis - PA / [employer] / Resident Statement MD/DO has reviewed & agrees with the documentation as recorded. - Scribe Statement The provider has reviewed the documentation as recorded by the Scribgomez Diaz All medical record entries made by the Alonaibgomez were at my direction and personally dictated by me. I have reviewed the chart and agree that the record accurately reflects my personal performance of the history, physical exam, medical decision making, and the department course for this patient. I have also personally directed, reviewed, and agree with the discharge instructions and disposition.
[2018-10-09 22:53] VITALS: RESP 20
== END 2018-10-09 22:52 | disposition home or self-care (01) ==
LOC: C.ER 20:08
DX: J30.9 Allergic rhinitis, unspecified (principal)

== ENCOUNTER 2018-10-22 14:43 | Emergency (ER) | payer MEDICAID ==
[2018-10-22 14:43] VITALS: BMI 27.2
[2018-10-22 14:50] VITALS: BP 125/81; PULSE 65; RESP 18; TEMP 98; O2SAT 98
--- NOTE | 2018-10-22 15:09 | C.PDOC ---
History Of Present Illness CC: Left calf numbness/tingling sensation HPI: Patient is a 22-year old male with past medical history of HTN, who presents to the ED with complaints of intermittent left calf tingling sensation that started on Friday evening. Patient states that the sensation is only localized to his left leg calf and denies any pain, coldness or loss of sensation. Patient denies any symptoms of swelling of the left calf, pulselesssness, paralysis, lack of hair on his left leg, trauma/injury, recent travels, chest pain, palpitations, shortness of breath or gait disturbances. Time Seen by Provider: 10/22/18 14:53 Chief Complaint (Nursing): Lower Extremity Problem/Injury History Per: Patient History/Exam Limitations: no limitations Onset/Duration Of Symptoms: Days Current Symptoms Are (Timing): Still Present Severity: Mild Pain Scale Rating Of: 3 Recent travel outside of the [place]: No Additional History Per: Patient - Hip Description Of Injury: denies: Fell, Tripped, Lost Balance - Knee Description Of Injury: denies: Fell, Struck With Object - Ankle/Foot Description Of Injury: denies: Fell, Struck With Object Alleviating Factor(s): denies: Ice Therapy Past Medical History Vital Signs: Last Vital Signs Temp 98 F 10/22/18 14:48 Pulse 65 10/22/18 14:48 Resp 18 10/22/18 14:48 BP 125/81 10/22/18 14:48 Pulse Ox 98 10/22/18 14:48 - Medical History PMH: HTN, Sexually Transmitted Disease - [facility] Procedures OTHER SKIN & SUBQ I D (02/09/15) Family History: States: Unknown Family Hx - Social History Hx Tobacco Use: No Hx Alcohol Use: Yes Hx Substance Use: No - Immunization History Hx Tetanus Toxoid Vaccination: Yes (2012) Hx Influenza Vaccination: Yes Hx Pneumococcal Vaccination: No Review Of Systems Constitutional: Negative for: Fever, Chills, Weakness Cardiovascular: Negative for: Chest Pain, Palpitations, Orthopnea Respiratory: Negative for: Shortness of Breath Musculoskeletal: Negative for: Leg Pain, Foot Pain Skin: Negative for: Rash Neurological: Negative for: Weakness, Numbness, Incoordination, Dizziness Physical Exam - Physical Exam Appears: Well, No Acute Distress Skin: Normal Color Head: Atraumatic, Normacephalic Eye(s): bilateral: EOMI Cardiovascular: Rhythm Regular, No Murmur Respiratory: Normal Breath Sounds, No Decreased Breath Sounds, No Accessory Muscle Use, No Rales, No Rhonchi, No Stridor, No Wheezing Gastrointestinal/Abdominal: Normal Exam, Bowel Sounds, Soft Extremity: Normal ROM, No Tenderness, No Pedal Edema, No Calf Tenderness, No Capillary Refill, No Deformity, No Swelling Extremity: Bilateral: Atraumatic Pulses: Left Dorsalis Pedis: Normal (DP and PT pulses are intact, normal temperature), Right Dorsalis Pedis: Normal (DP and PT pulses are intact, normal temperature ) Neurological/Psych: Oriented x3, Normal Speech, Normal Sensation Gait: Steady Extremity: Right: No Drift, Left: No Drift, Lower: No Drift ED Course And Treatment O2 Sat by Pulse Oximetry: 98 Disposition Discussed With : Kathi Hudson - Disposition Referrals: Niels Strauss MD [Staff Provider] - Disposition: HOME/ ROUTINE Disposition Time: 15:11 Condition: GOOD Additional Instructions: Please continue your home medication for your HTN as prescribed by your PCP, Niels Washington You can apply heating pad, Icy-hot patchy, massage and some left leg exercises Please follow up with your PCP, Niels Washington in 1-3 days Please continue with adequate water hydration Please return if symptoms worsens or persists Please take care Instructions: Paresthesias (DC) Forms: [facility] (Barbadian), General Discharge Instructions - Clinical Impression Clinical Impression: Numbness and tingling of left leg
== END 2018-10-22 15:33 | disposition home or self-care (01) ==
LOC: C.ER 14:43
DX: R20.0 Anesthesia of skin (principal); I10 Essential (primary) hypertension

== ENCOUNTER 2018-11-12 16:23 | Emergency (ER) | payer MEDICAID ==
[2018-11-12 16:49] VITALS: BP 133/82; PULSE 66; RESP 18; TEMP 98; O2SAT 99; BMI 29.5
--- NOTE | 2018-11-12 17:03 | C.PDOC ---
History Of Present Illness 22 y/o male with a PMHx of HTN presents to the ED complaining of cough and chest congestion for 4 days. Associated with generalized bodyaches and chills. Denies associated nausea, vomiting, diarrhea, fever, or SOB. No other complaints offered. Time Seen by Provider: 11/12/18 16:35 Chief Complaint (Nursing): Flu-like Symptoms History Per: Patient History/Exam Limitations: no limitations Onset/Duration Of Symptoms: Days (x 4) Current Symptoms Are (Timing): Still Present Sick Contacts (Context): None Past Medical History Reviewed: Historical Data, Nursing Documentation, Vital Signs Vital Signs: Last Vital Signs Temp 98.0 F 11/12/18 16:30 Pulse 66 11/12/18 16:30 Resp 18 11/12/18 16:30 BP 133/82 11/12/18 16:30 Pulse Ox 99 11/12/18 16:30 - Medical History PMH: HTN, Sexually Transmitted Disease Surgical History: No Surg Hx - [facility] Procedures OTHER SKIN & SUBQ I D (02/09/15) Family History: States: Unknown Family Hx - Social History Hx Tobacco Use: No Hx Alcohol Use: Yes Hx Substance Use: No - Immunization History Hx Tetanus Toxoid Vaccination: Yes (2012) Hx Influenza Vaccination: Yes Hx Pneumococcal Vaccination: No Review Of Systems Except As Marked, All Systems Reviewed And Found Negative. Constitutional: Positive for: Chills, Other (Bodyaches) ENT: Positive for: Nose Congestion Cardiovascular: Negative for: Chest Pain, Palpitations Respiratory: Positive for: Cough. Negative for: Shortness of Breath, Wheezing Gastrointestinal: Negative for: Nausea, Vomiting, Diarrhea Neurological: Negative for: Weakness, Dizziness Physical Exam - Physical Exam Appears: Well, Non-toxic, No Acute Distress Skin: Warm, Dry Head: Atraumatic, Normacephalic Eye(s): bilateral: Normal Inspection, PERRL, EOMI Oral Mucosa: Moist Throat: Normal, No Erythema, No Exudate Neck: Normal ROM Chest: Symmetrical Cardiovascular: Rhythm Regular, No Murmur Respiratory: Normal Breath Sounds, No Rales, No Rhonchi, No Wheezing Back: Normal Inspection Extremity: Bilateral: Atraumatic, Normal Color And Temperature, Normal ROM Neurological/Psych: Oriented x3, Normal Speech ED Course And Treatment O2 Sat by Pulse Oximetry: 99 (RA) Pulse Ox Interpretation: Normal Medical Decision Making Medical Decision Making: Impression: Flu-like symptoms Plan: --Chest x-ray --Flu swab pt obseved in nad. speaking full setences. cxr neg. will treat emprically with tamiflu. Disposition - Disposition Referrals: [facility] [Outside] [facility] [Outside] Disposition: HOME/ ROUTINE Disposition Time: 17:00 Condition: STABLE Additional Instructions: return to any er with worsening symptoms or concerns. Prescriptions: Oseltamivir Phosphate [Tamiflu] 75 mg PO BID #10 capsule Instructions: Viral Syndrome (DC) Forms: [employer] (Finnish) - Clinical Impression Clinical Impression: Influenza-like illness - Scribe Statement The provider has reviewed the documentation as recorded by the Harleen Miller Provider Attestation: All medical record entries made by the Alonaibgomez were at my direction and personally dictated by me. I have reviewed the chart and agree that the record accurately reflects my personal performance of the history, physical exam, medical decision making, and the department course for this patient. I have also personally directed, reviewed, and agree with the discharge instructions and disposition.
--- NOTE | 2018-11-12 17:44 | RAD ---
Date of service: 11/12/2018 HISTORY: cough COMPARISON: 06/26/2018 TECHNIQUE: Chest PA and lateral FINDINGS: LUNGS: No active pulmonary disease. PLEURA: No significant pleural effusion identified. No pneumothorax apparent. CARDIOVASCULAR: No aortic atherosclerotic calcification present. Normal cardiac size. No pulmonary vascular congestion. OSSEOUS STRUCTURES: No significant abnormalities. VISUALIZED UPPER ABDOMEN: Normal. OTHER FINDINGS: None. IMPRESSION: No active disease. No significant interval change compared to the prior examination(s).
== END 2018-11-12 18:10 | disposition home or self-care (01) ==
LOC: C.ER 16:23
DX: J11.1 Influenza due to unidentified influenza virus with other respiratory manifestations (principal)

== ENCOUNTER 2018-12-16 20:14 | Emergency (ER) | payer MEDICAID ==
[2018-12-16 20:14] VITALS: BMI 27.2
[2018-12-16 20:27] VITALS: BP 140/84; PULSE 66; RESP 20; TEMP 98.1; O2SAT 99
--- NOTE | 2018-12-16 21:15 | C.PDOC ---
History Of Present Illness 22 year old male presents to the ER with a complaint of back pain and lower abdominal pain for the past 3 days, associated with feeling "dehydrated" and tired. Patient states has had decreased appetite and has been drinking more water lately. He notes his last bowel movement was 2 days ago, states he usually gets constipated. Denies nausea, vomiting, fever, chills, cough, or runny nose. Time Seen by Provider: 12/16/18 20:37 Chief Complaint (Nursing): Back Pain History Per: Patient History/Exam Limitations: no limitations Onset/Duration Of Symptoms: Days Current Symptoms Are (Timing): Still Present Quality Of Discomfort: Unable To Describe Previous Symptoms: None Associated Symptoms: None Exacerbating Factor(s): Nothing Recent travel outside of the [place]: No Past Medical History Reviewed: Historical Data, Nursing Documentation, Vital Signs Vital Signs: Last Vital Signs Temp 98.1 F 12/16/18 20:22 Pulse 66 12/16/18 20:22 Resp 20 12/16/18 20:22 BP 140/84 12/16/18 20:22 Pulse Ox 99 12/16/18 20:22 - Medical History PMH: HTN, Sexually Transmitted Disease - [facility] Procedures OTHER SKIN & SUBQ I D (02/09/15) Family History: States: Unknown Family Hx - Social History Hx Tobacco Use: No Hx Alcohol Use: Yes Hx Substance Use: No - Immunization History Hx Tetanus Toxoid Vaccination: Yes (2012) Hx Influenza Vaccination: Yes Hx Pneumococcal Vaccination: No Review Of Systems Constitutional: Negative for: Fever, Chills ENT: Negative for: Nose Discharge Respiratory: Negative for: Cough Gastrointestinal: Positive for: Abdominal Pain. Negative for: Nausea, Vomiting, Diarrhea Genitourinary: Negative for: Dysuria, Hematuria Physical Exam - Physical Exam Appears: Non-toxic Skin: Normal Color, Warm, Dry, No Rash Head: Atraumatic, Normacephalic Eye(s): bilateral: Normal Inspection Oral Mucosa: Moist Neck: Normal, No Midline Cervical Tenderness, No Paracervical Tenderness, Supple Chest: Symmetrical, No Tenderness Cardiovascular: Rhythm Regular, No Friction Rub, No Murmur Respiratory: Normal Breath Sounds, No Rales, No Rhonchi, No Wheezing Gastrointestinal/Abdominal: Bowel Sounds (active), Soft, Tenderness (Mild inconsistent to LLQ), No Guarding, No Rebound Back: No CVA Tenderness Extremity: Normal ROM, No Swelling Neurological/Psych: Oriented x3, Normal Speech, Normal Motor ED Course And Treatment O2 Sat by Pulse Oximetry: 99 (Room air) Pulse Ox Interpretation: Normal Medical Decision Making Medical Decision Making: Urinalysis and obstructive series ordered. On re-exam, the patient reports improvement of symptoms. Lungs are CTA, heart is RRR, abdomen is soft, non-tender and tolerating PO well. Ambulatory in the ED w ith steady gait. Follow up with the medical doctor within 1-2 days. Return if worsened. Disposition - Disposition Referrals: [facility] [Outside] Disposition: HOME/ ROUTINE Disposition Time: 22:19 Condition: STABLE Additional Instructions: Follow up with the medical doctor within 1-2 days. Return if worsened. Prescriptions: Docusate [Colace] 100 mg PO DAILY #30 cap Ibuprofen [Motrin] 1 tab PO TID PRN #30 tab PRN Reason: Pain Polyethylene Glycol 3350 [Miralax] 17 gm PO DAILY PRN #100 ml PRN Reason: Constipation Instructions: Constipation, Adult (DC) Forms: [employer] (Mongolian) - Clinical Impression Clinical Impression: Constipation - PA / [employer]PERATIONS TECHNICIAN / Resident Statement MD/DO has reviewed & agrees with the documentation as recorded. - Scribe Statement The provider has reviewed the documentation as recorded by the Scribgomez Diaz All medical record entries made by the Scribe were at my direction and personally dictated by me. I have reviewed the chart and agree that the record accurately reflects my personal performance of the history, physical exam, medical decision making, and the department course for this patient. I have also personally directed, reviewed, and agree with the discharge instructions and disposition.
[2018-12-16 21:35] LABS: URINE BILIRUBIN NEGATIVE (NEGATIVE); URINE BLOOD NEGATIVE (NEGATIVE); URINE CLARITY Clear (Clear); URINE COLOR Straw (YELLOW); URINE GLUCOSE (UA) NORMAL (Normal); URINE LEUKOCYTE ESTERASE NEG Leu/uL (Negative); URINE PROTEIN NEGATIVE (NEGATIVE); URINE UROBILINOGEN NORMAL mg/dL (0.2-1.0)
--- NOTE | 2018-12-17 09:11 | RAD ---
Date of service: 12/16/2018 PROCEDURE: Radiographs of the chest and abdomen (obstructive series) HISTORY: constipation, abd pain COMPARISON: No prior. TECHNIQUE: AP radiograph of the chest, with upright and supine radiographs of the abdomen. FINDINGS: CHEST: Lungs: Clear. Cardiovascular: Normal size heart. No pulmonary vascular congestion. No aortic atherosclerotic calcification present Pleura: No pleural fluid. No pneumothorax. Other findings: None. ABDOMEN AND PELVIS: Bowel: Moderate stool retention. No evidence of mechanical obstruction. Free air: None. Bones: Each superolateral acetabulum appears prominent. An old osseous avulsion on the right versus an unfused os acetabulum is suggested Other findings: None. IMPRESSION: No pulmonary infiltrate. No bowel obstruction. Moderate stool retention. Other findings as above
== END 2018-12-16 22:53 | disposition home or self-care (01) ==
LOC: C.ER 20:14
DX: K59.00 Constipation, unspecified (principal)